=== PATIENT | male | born 2005 | race Caucasian/White ===

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

== ENCOUNTER 2024-03-08 14:09 | Emergency (ER) | payer MEDICAID ==
[~2024-03-08] VITALS: Ht 182.9 cm; Wt 81.4 kg
[2024-03-08 14:39] VITALS: TEMP 98
[2024-03-08] MEDS ORDERED: CYCL-1 PO (15:27)
[2024-03-08] MEDS ORDERED: NAPR-56 PO (15:27)
[2024-03-08] MEDS: ketorolac tromethamine 15mg/ml inj. IM ONE (15:36)
[2024-03-08 15:45] VITALS: BP 115/67; PULSE 58; RESP 16; O2SAT 97
== END 2024-03-08 15:50 | disposition home or self-care (01) ==
LOC: ER 14:10
DX: S39.012A Strain of muscle, fascia and tendon of lower back, initial encounter (principal); Z79.899 Other long term (current) drug therapy; X50.9XXA Other and unspecified overexertion or strenuous movements or postures, initial encounter; Y93.89 Activity, other specified; Y92.89 Other specified places as the place of occurrence of the external cause; Y99.8 Other external cause status
CPT/HCPCS: 96372; 99283; J1885

== ENCOUNTER 2024-12-02 01:48 | Emergency (ER) | payer MEDICAID ==
[~2024-12-02] VITALS: Ht 182.9 cm; Wt 81.8 kg
[~2024-12-02 01:48] MED LIST changes: +CYCL-1 PO
[2024-12-02 02:43] LABS: URINE AMPHETAMINE SCREEN NEGATIVE (Neg); URINE BARBITUATE SCREEN NEGATIVE (Neg); URINE BENZODIAZEPINES SCREEN NEGATIVE (Neg); URINE CANNABINOID SCREEN NEGATIVE (Neg); URINE COCAINE SCREEN NEGATIVE (Neg); URINE METHADONE SCREEN NEGATIVE (Neg); URINE OPIATE SCREEN NEGATIVE (Neg); URINE PHENCYCLIDINE SCREEN NEGATIVE (Neg)
[2024-12-02 02:50] VITALS: BP 124/71; PULSE 105; RESP 14; O2SAT 99
[2024-12-02 03:31] VITALS: TEMP 98
== END 2024-12-02 03:34 | disposition home or self-care (01) ==
LOC: ER 01:48
DX: F10.129 Alcohol abuse with intoxication, unspecified (principal); I48.91 Unspecified atrial fibrillation; Y90.9 Presence of alcohol in blood, level not specified
CPT/HCPCS: 80305; 99283